=== PATIENT | female | born 1990 | race Caucasian/White ===

== ENCOUNTER 2019-01-25 22:01 | Emergency (ER) | payer MEDICAID ==
[2019-01-25] MEDS ORDERED: Ketorolac 30 MG/ML SDV IVPUSH ONE (22:29)
--- NOTE | 2019-01-25 22:36 | EDM.PDOC ---
ED HPI GENERAL MEDICAL PROBLEM - General Chief Complaint: Abdominal Pain Stated Complaint: RT SIDE PAIN Time Seen by Provider: 01/25/19 22:15 Source of Information: Reports: Patient History Limitations: Reports: No Limitations - History of Present Illness INITIAL COMMENTS - FREE TEXT/NARRATIVE: c/o pain at R breast and R flank pt with pain at R breast this AM, 2h ago with pain at R flank that radiated to R breast, holding hand over her R flank has not had this pain before pain went away in the shower, then came back ate beef and past for supper with no change in pain no better or worse with walking no change with BM no f/c/d no n/v meds: metformin, phentermine, Wellbutrin SH: not working, no children, here with mother right side abd Pain Score (Numeric/FACES): 8 - Related Data Allergies Allergy/AdvReac Type Severity Reaction Status Date / Time No Known Allergies Allergy Verified 05/26/14 21:04 Home Meds: Home Meds Cyclobenzaprine [Flexeril] 10 mg PO TID PRN #8 tab 05/28/14 [Rx] Phentermine HCl 37.5 mg PO DAILY 01/25/19 [History] buPROPion [buPROPion XL] 300 mg PO DAILY 01/25/19 [History] metFORMIN HCl [Metformin HCl] 1,000 mg PO DAILY 01/25/19 [History] Past Medical History - Past Health History Medical/Surgical History: Denies Medical/Surgical History ED ROS GENERAL - Review of Systems Review Of Systems: See Below Constitutional: Reports: No Symptoms HEENT: Reports: No Symptoms Respiratory: Reports: No Symptoms Cardiovascular: Reports: No Symptoms Endocrine: Reports: No Symptoms GI/Abdominal: Reports: Abdominal Pain. Denies: Constipation, Diarrhea, Nausea, Vomiting : Reports: No Symptoms Musculoskeletal: Reports: No Symptoms Skin: Reports: No Symptoms Neurological: Reports: No Symptoms Psychiatric: Reports: No Symptoms Hematologic/Lymphatic: Reports: No Symptoms Immunologic: Reports: No Symptoms ED EXAM, GI/ABD - Physical Exam Exam: See Below Exam Limited By: Other (BMI 57) General Appearance: Alert, WD/WN, No Apparent Distress Eyes: Bilateral: Normal Appearance Ears: Normal External Exam Nose: Normal Inspection Throat/Mouth: Normal Inspection, Normal Lips, Normal Teeth, Normal Gums, Normal Oropharynx, Normal Voice, No Airway Compromise Head: Atraumatic, Normocephalic Neck: Normal Inspection, Supple, Non-Tender, Full Range of Motion. No: Lymphadenopathy (R), Lymphadenopathy (L) Respiratory/Chest: No Respiratory Distress, Lungs Clear, Normal Breath Sounds, No Accessory Muscle Use, Chest Non-Tender Cardiovascular: Regular Rate, Rhythm, No Edema, No Murmur GI/Abdominal Exam: Soft, No Distention, No Mass, Other (obese, 1+ tender at Cavanaugh's point, NT at ribs, NT in epigastrium, no CVAT b/l, nl BS x 4) Back Exam: Normal Inspection, Full Range of Motion. No: CVA Tenderness (R), CVA Tenderness (L) Extremities: Normal Inspection, Normal Range of Motion, Non-Tender Neurological: Alert, Oriented, CN II-XII Intact, No Motor/Sensory Deficits Psychiatric: Normal Affect, Normal Mood Skin Exam: Warm, Dry, Intact, Normal Color, No Rash Lymphatic: No Adenopathy Course - Vital Signs Last Recorded V/S: Last Vital Signs Temp 36.6 C 01/25/19 22:01 Pulse 79 01/25/19 23:05 Resp 18 01/25/19 23:05 BP 114/58 L 01/25/19 23:05 Pulse Ox 100 01/25/19 23:05 - Orders/Labs/Meds Labs: Laboratory Tests 01/25/19 01/25/19 01/25/19 Range/Units 22:40 22:40 22:40 WBC 11.2 (4.5-12.0) X10-3/uL RBC 5.14 (3.23-5.20) x10(6)uL Hgb 13.6 (11.5-15.5) g/dL Hct 40.6 (30.0-51.3) % MCV 79.0 L (80-96) fL MCH 26.5 L (27.7-33.6) pg MCHC 33.6 (32.2-35.4) g/dL RDW 13.4 (11.5-15.5) % Plt Count 397 H (125-369) X10(3)uL MPV 7.7 (7.4-10.4) fL Neut % (Auto) 48.0 (46-82) % Lymph % (Auto) 44.7 H (13-37) % [place] % (Auto) 5.6 (4-12) % Eos % (Auto) 1 (1.0-5.0) % Baso % (Auto) 0 (0-2) % Neut # (Auto) 5.4 (1.6-8.3) # Lymph # (Auto) 5.0 (0.6-5.0) # [place] # (Auto) 0.6 (0.0-1.3) # Eos # (Auto) 0.2 (0.0-0.8) # Baso # (Auto) 0.0 (0.0-0.2) # Sodium 139 (135-145) mmol/L Potassium 3.7 (3.5-5.3) mmol/L Chloride 102 (100-110) mmol/L Carbon Dioxide 29 (21-32) mmol/L BUN 12 (7-18) mg/dL Creatinine 0.7 (0.55-1.02) mg/dL Est Cr Clr Drug Dosing 118.43 mL/min Estimated GFR (MDRD) > 60 (>60) BUN/Creatinine Ratio 17.1 (9-20) Glucose 125 H (80-116) mg/dL Calcium 8.6 (8.6-10.2) mg/dL Total Bilirubin 0.3 (0.1-1.3) mg/dL AST 14 (5-25) IU/L ALT 17 (12-36) U/L Alkaline Phosphatase 81 (56-112) IU/L C-Reactive Protein 3.2 H* (0.5-0.9) mg/dL Total Protein 7.7 (6.0-8.0) g/dL Albumin 3.4 L (3.5-5.2) g/dL Globulin 4.3 g/dL Albumin/Globulin Ratio 0.8 Amylase 59 (25-115) U/L Urine Color (YELLOW) Urine Appearance (CLEAR) Urine pH (5.0-6.5) Ur Specific [place] (1.010-1.025) Urine Protein (NEGATIVE) mg/dL Urine Glucose (UA) (NEGATIVE) mg/dL Urine Ketones (NEGATIVE) mg/dL Urine Occult Blood (NEGATIVE) Urine Nitrite (NEGATIVE) Urine Bilirubin (NEGATIVE) Urine Urobilinogen (NEGATIVE) mg/dL Ur Leukocyte Esterase (NEGATIVE) Urine RBC (0) Urine WBC (0) Ur Squamous Epith Cells (NS,R,O) Urine Bacteria (NS) Urine HCG, Qual (NEGATIVE) 01/25/19 01/25/19 Range/Units 22:52 22:52 WBC (4.5-12.0) X10-3/uL RBC (3.23-5.20) x10(6)uL Hgb (11.5-15.5) g/dL Hct (30.0-51.3) % MCV (80-96) fL MCH (27.7-33.6) pg MCHC (32.2-35.4) g/dL RDW (11.5-15.5) % Plt Count (125-369) X10(3)uL MPV (7.4-10.4) fL Neut % (Auto) (46-82) % Lymph % (Auto) (13-37) % [place] % (Auto) (4-12) % Eos % (Auto) (1.0-5.0) % Baso % (Auto) (0-2) % Neut # (Auto) (1.6-8.3) # Lymph # (Auto) (0.6-5.0) # [place] # (Auto) (0.0-1.3) # Eos # (Auto) (0.0-0.8) # Baso # (Auto) (0.0-0.2) # Sodium (135-145) mmol/L Potassium (3.5-5.3) mmol/L Chloride (100-110) mmol/L Carbon Dioxide (21-32) mmol/L BUN (7-18) mg/dL Creatinine (0.55-1.02) mg/dL Est Cr Clr Drug Dosing mL/min Estimated GFR (MDRD) (>60) BUN/Creatinine Ratio (9-20) Glucose (80-116) mg/dL Calcium (8.6-10.2) mg/dL Total Bilirubin (0.1-1.3) mg/dL AST (5-25) IU/L ALT (12-36) U/L Alkaline Phosphatase (56-112) IU/L C-Reactive Protein (0.5-0.9) mg/dL Total Protein (6.0-8.0) g/dL Albumin (3.5-5.2) g/dL Globulin g/dL Albumin/Globulin Ratio Amylase (25-115) U/L Urine Color Yellow (YELLOW) Urine Appearance Clear (CLEAR) Urine pH 5.0 (5.0-6.5) Ur Specific [place] 1.020 (1.010-1.025) Urine Protein Negative (NEGATIVE) mg/dL Urine Glucose (UA) Normal (NEGATIVE) mg/dL Urine Ketones Negative (NEGATIVE) mg/dL Urine Occult Blood Moderate H (NEGATIVE) Urine Nitrite Negative (NEGATIVE) Urine Bilirubin Negative (NEGATIVE) Urine Urobilinogen 1 H (NEGATIVE) mg/dL Ur Leukocyte Esterase Negative (NEGATIVE) Urine RBC 5-10 (0) Urine WBC 0-5 (0) Ur Squamous Epith Cells Occasional (NS,R,O) Urine Bacteria Rare H (NS) Urine HCG, Qual Negative (NEGATIVE) Meds: Medications Discontinued Medications Generic Name Dose Route Start Last Admin Trade Name Freq PRN Reason Stop Dose Admin Ketorolac Tromethamine 30 mg 01/25/19 22:29 01/25/19 22:44 Toradol IVPUSH 01/25/19 22:30 30 mg ONETIME ONE Administration - Re-Assessments/Exams Free Text/Narrative Re-Assessment/Exam: 01/25/19 23:49 pain and tenderness had decreased quite a bit after Toradol 30 mg IV, still some discomfort, pt undecided whether to take any more pain meds, mom suggested doing so, pt agreed, will give MS 2 mg IV plus Zofran 4 mg IV at d/c will obtain GB u/s later this morning when pilot plant technician is here and have pt see surgeon this PM PCP is Dr Leon pt understands she may return to ED at any time if pain worsens biliary colic is most likely dx WBC 11.2, CRP 3.2, plt 397 suggestive of possible inflammatory process Departure - Departure Time of Disposition: 23:52 Disposition: Home, Self-Care 01 Condition: Good Clinical Impression: Right upper quadrant abdominal pain, Elevated C-reactive protein (CRP) - Discharge Information *PRESCRIPTION DRUG MONITORING PROGRAM REVIEWED*: Not Applicable *COPY OF PRESCRIPTION DRUG MONITORING REPORT IN PATIENT NAIDA: Not Applicable Instructions: Biliary Colic, Adult Referrals: Sunil Leon MD [Primary Care Provider] - Forms: ED Department Discharge Additional Instructions: Do not eat or drink until after the ultrasound of the gallbladder is completed. Someone from the radiology department will call you later this morning to tell you what time to come in. Call the hospital at 8 AM if you have not heard by then. Call the [facility] at 8 AM this morning to schedule an appointment with the surgeon this afternoon to go over the ultrasound report and for further recommendations. For pain, take ibuprofen 200 mg 3 tabs and acetaminophen 500 mg 2 tabs 4 times today. Soak in a warm tub or shower for 15 minutes 3 times today. You may eat after the ultrasound is done. However, avoid fatty foods. Return to ED if you are feeling worse. Call your Physician or Return to Emergency Department if: * Your condition worsens in any way. * You develop fever greater than 100.4. * You have vomitting that does not stop with medications. * You have pain that is not controlled with medications.
[2019-01-25] MEDS ORDERED: Morphine 2 MG/ML Syringe IVPUSH ONE (23:58)
[2019-01-25] MEDS ORDERED: Ondansetron 4 MG/2 ML SDV IVPUSH ONE (23:58)
[2019-01-26] MEDS ORDERED: Sodium Chloride 0.9% 10 ML Syringe FLUSH PRN (00:05)
--- NOTE | 2019-01-27 14:04 | US ---
INDICATION: Complains of right upper quadrant pain - biliary colic. RIGHT UPPER QUADRANT/GALLBLADDER ULTRASOUND: Multiple ultrasonic images were obtained 01/26/19. No comparison studies were available. The pancreas was poorly visualized. No gross abnormality was seen in that area , however. The liver has somewhat variable echogenicity, suggesting relatively patchy fatty liver changes. No definite focal liver lesion was seen. The IVC was phasic. The aorta was not evaluated. Multiple calculi are noted in the gallbladder. The gallbladder wall was not thickened. The gallbladder measured 6.2 x 2.8 x 3.8 cm. A negative ultrasonic [place] sign was noted. No pericholecystic fluid was noted. The gallbladder wall measured 1.4 mm. Common bile duct was normal in caliber at 3.6 mm. The right kidney had a normal appearance, measuring 11.9 x 4.7 cm. No mass lesions or free fluid collections were identified. IMPRESSION: 1. Cholelithiasis. 2. Pancreas not well visualized. MTDD
== END 2019-01-26 00:19 | disposition home or self-care (01) ==
LOC: FB.ED 22:01
DX: R10.11 Right upper quadrant pain (principal); R79.82 Elevated C-reactive protein (CRP); Z79.84 Long term (current) use of oral hypoglycemic drugs; Z79.899 Other long term (current) drug therapy
CPT/HCPCS: 36415; 76705; 80053; 81001; 81025; 82150; 85025; 86140; 96374; 96375; 99284-25; J1885; J2270; J2405